=== PATIENT | female | born 1995 | race Caucasian/White ===

== ENCOUNTER 2023-06-14 01:43 | Emergency (ER) | payer SELFPAY ==
[~2023-06-14] VITALS: Ht 170.2 cm; Wt 74.8 kg
[2023-06-14 01:49] VITALS: BP 132/71; PULSE 98; RESP 16; TEMP 97.4; O2SAT 100
== END 2023-06-14 02:19 ==
LOC: MED 01:43
DX: Z02.89 Encounter for other administrative examinations (principal); V49.88XA Car occupant (driver) (passenger) injured in other specified transport accidents, initial encounter; Y93.89 Activity, other specified; Y92.89 Other specified places as the place of occurrence of the external cause; Y99.8 Other external cause status
CPT/HCPCS: 99283